=== PATIENT | male | born 1940 ===

== ENCOUNTER 2018-07-18 07:30 | Day surgery (SDC) | payer MEDICARE, BC ==
[~2018-07-18 07:30] MED LIST: Acetaminophen TAB* 325 MG PO PRN; Buffered Lidocaine 0.9% SYRIN* 5 ML/SYR SYRINGE INTRADERM ONE
[2018-07-18] MEDS ORDERED: Midazolam* 1 MG/ML 2 ML VIAL (2 MG) ONE (08:31)
[2018-07-18] MEDS ORDERED: fentaNYL* 50 MCG/ML 2 ML VIAL (100 MCG VIAL) ONE (08:31)
[2018-07-18 10:02] VITALS: BP 145/87
--- NOTE | 2018-07-18 12:06 | OP ---
OPERATIVE REPORT: DATE OF OPERATION: 07/18/18 DATE OF : 42 SURGEON: Jamie Bundy MD ANESTHESIA: Monitored anesthesia care. PRE-OP DIAGNOSIS: Cataract, left eye. POST-OP DIAGNOSIS: Cataract, left eye. OPERATIVE PROCEDURE: Extracapsular cataract extraction of the left eye with intraocular lens implant . IMPLANTS: SN60WF 20.5 diopter lens to the left eye. COMPLICATIONS: None. DESCRIPTION OF PROCEDURE: The patient was given phenylephrine 2.5 % and cyclopentolate 1% eye drops to the operative eye in the preoperative area. The patient was taken to the operating room where a ti me-out was taken to identify the correct patient, site, and side of surgery. The patient's left eye w as prepped and draped in the usual sterile fashion with 5% Betadine. A second time-out was taken to v erify the correct patient, side, and site of surgery, as well as the correct lens implant. A lid spec ulum was placed to the left eye. A 1-mm paracentesis blade was used to make a clear corneal incision. Preservative-free 1% lidocaine was injected into the anterior chamber. DisCoVisc was then injected i nto the anterior chamber. A 2.75 mm keratome blade was used to make a triplanar incision. A cystotome initiated a capsulorrhexis, which was completed with Utrata forceps in a continuous and curvilinear manner. Hydrodissection of the lens was performed with BSS on a cannula. The lens could be spun in a capsular bag. The phacoemulsification handpiece was used with a [id number]-[id number] technique to remov e the nucleus. The I/A handpiece then removed the residual cortical lens material. DisCoVisc was inje cted to inflate the capsular bag. The planned SN60WF 20.5 Diopter lens was injected into the capsular bag. The residual DisCoVisc was removed from the eye with the I/A handpiece. The corneal incisions w ere hydrated and no leaks occurred at physiologic pressure around 20 mmHg per palpation. The lid spec ulum was removed and drapes were removed. Maxitrol ointment was placed to the surface of the operativ e eye. An adhesive patch and shield was then placed on the operative eye. The patient was taken to e postoperative area in stable condition. [id number]/[facility] #: [id number]
[2018-07-18] MEDS ORDERED: Tropicamide 1% OPTH.SOL* BTL ONE (14:33)
[2018-07-18] MEDS ORDERED: Neomycin/Polymy/Dex OPHTH.OIN* 3.5 GM ONE (14:33)
[2018-07-18] MEDS ORDERED: Phenylephrine 2.5% OPTH.SOL* 2 ML BTL ONE (14:33)
[2018-07-18] MEDS ORDERED: Tetracaine 0.5% OPTH.SOL 4 ML* 1 DROP BTL ONE (14:33)
[2018-07-18] MEDS ORDERED: Ketorolac 0.5% OPHTH (NF) 0.5 % 5 ML BTL ONE (14:33)
[2018-07-18] MEDS ORDERED: Cyclopentolate 1% OPTH.SOL* 2 ML BTL ONE (14:33)
[2018-07-18] MEDS ORDERED: Povidone Iodine 5% OPTH* 30 ML BTL ONE (14:33)
[2018-07-18] MEDS ORDERED: Lidocaine 1%* 5 ML VIAL ONE (14:33)
[2018-07-18] MEDS ORDERED: acetaZOLAMIDE TAB* 250 MG ONE (14:33)
== END 2018-07-18 09:53 | disposition home or self-care (01) ==
LOC: OREAST 07:30
PROVIDERS: ATTEND Student in an Organized Health Care Education/Training Program
DX: H25.12 Age-related nuclear cataract, left eye (principal); H35.3131 Nonexudative age-related macular degeneration, bilateral, early dry stage; Z87.891 Personal history of nicotine dependence; Z85.028 Personal history of other malignant neoplasm of stomach; K21.9 Gastro-esophageal reflux disease without esophagitis; F41.8 Other specified anxiety disorders; C85.90 Non-Hodgkin lymphoma, unspecified, unspecified site
CPT/HCPCS: A9270-GY; J2250; J3010; V2632

== ENCOUNTER 2018-08-14 08:15 | Emergency (ER) | payer MEDICARE, BC ==
--- NOTE | 2018-08-14 08:28 | ED ---
GI/ HPI - HPI Summary HPI Summary: The patient is a 77 y/o M presenting to [facility] with a chief complaint of urinary retention and constipation for the last three days. He states that he has been able to urinate scant amounts with his last urination occurring this morning [employer].He has been taking Miralax for the constipation to some relief. He additionally c/o mild lower back pain and diffuse suprapubic abd pain, currently rated 4/10 in severity. He denies fevers, SOB, and rectal pain. He has hx of BPH and ataxia. Former smoker. He takes Flomax and Vitamin D. Noncontributory to formerly [facility], [facility]. He lives at home with his and children. - History of Current Complaint Chief Complaint: EDUrogenitalProblems Time Seen by Provider: 08/14/18 08:19 Stated Complaint: UNABLE TO URINATE Hx Obtained From: Patient Onset/Duration: Started Days Ago - three, Still Present Timing: Lasting Days Severity: Moderate Current Severity: Moderate Pain Intensity: 4 Location of Pain: Suprapubic Associated Signs and Symptoms: Positive: Back Pain - low back, Constipation, Abdominal Pain - diffuse suprapuic, Other: - NEGATIVE: SOB. Negative: Rectal Pain, Fever Aggravating Factor(s): Nothing Alleviating Factor(s): Nothing - Allergy/Home Medications Allergies/Adverse Reactions: Allergies Allergy/AdvReac Type Severity Reaction Status Date / Time celecoxib [From Celebrex] Allergy Unknown Verified 08/14/18 08:27 Reaction Details oxycodone Allergy Unknown Verified 08/14/18 08:27 Reaction Details PMH/Surg Hx/FS Hx/Imm Hx Endocrine/Hematology History: Denies: Hx Diabetes Cardiovascular History: Denies: Hx Hypertension, Hx Pacemaker/ICD, Other Cardiovascular Problems/ Disorders Respiratory History: Denies: Other Respiratory Problems/Disorders GI History: Reports: Hx Gastroesophageal Reflux Disease, Other GI Disorders - Stomach cancer -radiation History: Reports: Other Problems/Disorders - Benign Prostate Hypertrophy Denies: Hx Renal Disease Musculoskeletal History: Denies: Other Musculoskeletal History Sensory History: Reports: Hx Cataracts - Left eye, Hx Contacts or Glasses - Glasses Denies: Hx Hearing Aid Opthamlomology History: Reports: Hx Cataracts - Left eye, Hx Contacts or Glasses - Glasses Neurological History: Reports: Other Neuro Impairments/Disorders - Ataxia, Parkinson's Disease Psychiatric History: Reports: Hx Anxiety, Hx Depression Denies: Hx Panic Disorder - Cancer History Cancer Type, Location and Year: STOMACH CARCINOMA 2007 Hx Chemotherapy: Yes - Surgical History Surgery Procedure, Year, and Place: Left knee surgery. Left wrist surgery Hx Anesthesia Reactions: No Infectious Disease History: No Infectious Disease History: Denies: Traveled Outside the [place] in Last 30 Days - Family History Known Family History: Positive: Unknown - Patient is noncontributory. - Social History Lives: With Family Alcohol Use: None Substance Use Type: Reports: None Smoking Status (MU): Former Smoker Type: Cigars Amount Used/How Often: cigars Review of Systems Negative: Fever Negative: Shortness Of Breath Positive: Abdominal Pain - diffuse lower abd, Other - constipation Positive: frequency - decreased urination for last three days Positive: Other - low back pain All Other Systems Reviewed And Are Negative: Yes Physical Exam - Summary Physical Exam Summary: Appearance: Well appearing, no pain distress Skin: warm, dry, reflects adequate perfusion Head/face: normal Eyes: EOMI, BREANNE ENT: mucous membranes moist Neck: supple, non-tender Respiratory: CTA, breath sounds present Cardiovascular: heart is tachycardic, pulses symmetrical Abdomen: non-tender, soft Bedside US: bladder is full but not overly distended, very large prostate, suprapubic tenderness in nature Exam: circumcised male, prostate is firm and enlarged Bowel Sounds: present Musculoskeletal: normal, strength/ROM intact, no back pain at all Neuro: Dysarthria with speech, sensory motor intact, A&Ox3 Triage Information Reviewed: Yes Vital Signs On Initial Exam: Initial Vitals Temp Pulse Resp BP Pulse Ox 99.1 F 98 20 182/99 95 08/14/18 08:18 08/14/18 08:18 08/14/18 08:18 08/14/18 08:18 08/14/18 08:18 Vital Signs Reviewed: Yes Diagnostics - Vital Signs Vital Signs Temp Pulse Resp BP Pulse Ox 08/14/18 08:18 99.1 F 98 20 182/99 95 - Laboratory Result Diagrams: 08/14/18 08:46 08/14/18 08:46 Lab Statement: Any lab studies that have been ordered have been reviewed, and results considered in the medical decision making process. GIGU Course/Dx - Course Course Of Treatment: Patient with a history of BPH who presents with discomfort in the perineal and sacral area. States he has not been able to urinate in several days. He was able to go a small amount prior to arrival. He has no fever, shakes or chills. Prostate is firm but not boggy or with no significant tenderness on exam. The urine came out clear and he drained over 700 cc with placement of [place]. He is already on Flomax. He will follow-up with the urologist this week. A dose of Rocephin was given here after the prostate was instrumented during catheterization. - Diagnoses Differential Diagnoses - Male: Other - Acute constipation, prostatitis, UTI, BPH , urinary retention, prostate cancer Provider Diagnoses: BPH (benign prostatic hyperplasia), Acute urinary retention Discharge - Sign-Out/Discharge Documenting (check all that apply): Patient Departure - Patient will be discharged home. - Discharge Plan Condition: Improved Disposition: HOME Patient Education Materials: Urinary Retention in Men (ED) Referrals: Giovanni Brown MD [Primary Care Provider] - 3 Days Rylan Garnica MD [Medical Doctor] - Additional Instructions: Catheter likely will have to remain in place for this week. See your urologist as soon as possible. Continue Flomax. Return if worse, fevers, weakness, illness, new symptoms or other concerns. - Billing Disposition and Condition Condition: IMPROVED Disposition: Home - Attestation Statements Document Initiated by Isa: Yes Documenting Scribe: Allyson Pulliam Provider For Whom Isa is Documenting (Include Credential): Dr. Paul Marc MD Scribe Attestation: Allyson Stack scribed for Dr. Paul Marc MD on 08/14/18 at 1453. Scribe Documentation Reviewed: Yes Provider Attestation: The documentation as recorded by the Allyson cid accurately reflects the service I personally performed and the decisions made by me, Dr. Paul Marc MD
[2018-08-14] MEDS ORDERED: NS 0.9% 1000 ML* 1,000 ML IV ONE (08:31)
--- OUTSIDE RECORDS SUMMARY | 2018-08-14 08:39 | XMS REPORT | Continuity of Care Document ---
:1940 External Reference #:[id number] Author Name Jamie Bundy M.D. Address [address] [place] [address] Care Team Providers Name Role Phone Giovanni Brown M.D. Primary Care Physician Unavailable Payers Type Date Identification Numbers Payment Provider Subscriber Effective: Policy Number: [id number] Medicare - NGS Viktor Soto 2006 PayID: [id number] [address] [facility] [place] [address] Policy Number: [id number] [place] Plan [employer] Soto PayID: [id number] [address] [place] [address] Advance Directives Description No Information Available Problems Date Description Provider Status Onset: 04/12/2015 Mitral valve prolapse Lina Graham O.D. Active Onset: 04/12/2015 Spondylosis Lina Graham O.D. Active Onset: 04/12/2015 Disorder of prostate Lina Graham O.D. Active Onset: 04/12/2015 Lymphoma of body of stomach Lina Graham O.D. Active Onset: 04/12/2015 Neuropathy Lina Graham O.D. Active Onset: 04/12/2015 Glaucoma suspect Lina Graham O.D. 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 Active Onset: 04/12/2015 Dry eyes Lina Graham O.D. Active Onset: 04/12/2015 Sjogren's syndrome Lina Graham O.D. Active Onset: 04/12/2015 Nuclear senile cataract Lina Graham O.D. Active Onset: 04/12/2015 Retinal hemorrhage Lina Graham O.D. Active Onset: 04/12/2015 Astigmatism Lina Graham O.D. Active Onset: 05/24/2015 Borderline glaucoma Lina Graham O.D. Active Onset: 10/23/2016 Diplopia Lina Graham O.D. Active Onset: 01/29/2017 Regular astigmatism Lina Graham O.D. Active Onset: 01/29/2017 Presbyopia Lina Graham O.D. 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 Family History Date Family Member(s) Problem(s) Comments General Not Known - Adopted Social History Type Date Description Comments Sex Unknown Marital Status Legal Status: Occupation [employer] ETOH Use Occasionally consumes alcohol Recreational Drug Use Denies Drug Use Tobacco Use Start: Unknown End: Patient is a former smoker Unknown Smoking Status Reviewed: 08/02/18 Patient is a former smoker Allergies, Adverse Reactions, Alerts Date Description Reaction Status Severity Comments 04/12/2015 Celebrex Active 04/12/2015 Oxycontin Active Medications Medication Date Status Form Strength Qnty SIG Indications Ordering Provider Refresh Optive 04/11/ Active Solution 0.5-0.9% 1 drop Lina LozaRio 2014 both eyes [place], four times O.D. a day Genteal Severe 04/11/ Active Gel 0.3% 1 both Lina Loza. 2014 eyes twice [place], a day O.D. Flomax / Active Capsules 0.4mg Unknown 0000 Vitamin D / Active Tablets 1000Unit every day Unknown 0000 Clonazepam / Active Tablets 0.5mg as needed Stephanie, 0000 Giovanni M.DRio Vigamox 07/06/ Hx Solution 0.5% 3ml one drop Jamie 2018 - left eye Niharika, 08/01/ three M.D. 2018 times a day, start the day before surgery Ketorolac 07/06/ Hx Solution 0.5% 10ml use one Jamie Tromethamine 2018 - drop in Niharika, 08/01/ the left M.D. 2018 eye three times a day, start the day before surgery Prednisolone 07/06/ Hx Suspension 1% 15ml 1 drops Jamie Acetate 2018 - left eye Niharika, 08/01/ three M.D. 2018 times a day. taper as directed Celexa / Hx Tablets 10mg Unknown 0000 - 2017 Clonazepam / Hx Tablets 0.25mg Unknown 0000 - Dispers 2014 Immunizations Description No Information Available Vital Signs Description No Information Available Results Description No Information Available Procedures Date Code Description Status 07/18/2018 37836 Extracapsular Cataract Extraction W/Intraocular Lens Completed 07/06/2018 65061 Ophthalmic Biometry Completed 06/07/2018 56445 Est Patient Comprehensive Exam Completed 10/23/2016 17238 Visual Field Exam Extended Completed 10/23/2016 96930 Est Patient Intermediate Exam Completed 05/24/2015 23466 Scanning Computerized Ophthalmic Diagnostic Imag Posterior Completed Seg On 04/12/2015 71085 Determination Of Refractive State Completed 04/12/2015 24904 Est Patient Comprehensive Exam Completed 01/22/2014 56297 Determination Of Refractive State Completed 01/22/2014 19215 Est Patient Comprehensive Exam Completed 01/17/2013 77563 Determination Of Refractive State Completed 01/17/2013 23212 Est Patient Comprehensive Exam Completed 10/12/2011 69498 Est Patient Comprehensive Exam Completed 08/27/2010 39190 Determination Of Refractive State Completed 08/27/2010 48875 New Patient Comprehensive Exam Completed 02/17/2007 19948 Recheck Completed 07/22/2005 46490 Cancelled Appointment Completed 07/04/2004 30014 Cancelled Appointment Completed 06/23/2004 62597 Scanning Laser W/Interp And Report Completed 06/23/2004 69403 Scanning Laser W/Interp And Report Completed 06/23/2004 45459 Visual Field Exam Intermediate Completed 06/23/2004 87456 Pachymetry Completed 05/02/2004 84294 Fundus Photography With Interpretation And Report Completed 05/02/2004 08509 Determination Of Refractive State Completed 05/02/2004 19763 Est Patient Comprehensive Exam Completed Encounters Type Date Location Provider Dx Diagnosis Office Visit 07/06/2018 [facility], Jamie Bundy, H25.12 Age- related 2:15p , jessica Tadeo nuclear cataract, left eye 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 If you are a smoker, we strongly recommend that you quit.If you are not a smoker, we strongly recommend that you do not start. Your lens implant looks stable in your left eye at this time. You should be done, or almost done with your drops at this time according to your surgicalcalendar. I have given you a prescription for glasses. If you have any questions, please feel freeto call our office at .H25.11 Age-related nuclear cataract, right eyeComments:You have been diagnosed with a cataract in the right eye. If you are happy with your vision as it is, we will see you at your next scheduled appointment. If you feel like your vision is getting worse before your scheduled appointment, please call Norah Rich, at [phone].Follow up:1 Year Follow Up DFE You can expect to have your eyes dilated at your next visit. If Dr. Bundy orders any additional testing, it may require extra time. We recommend that you bring sunglasses, as dilation drops often make you light sensitive until they wear off. We always recommend you bring someone to drive you home if you are uncomfortable driving with your eyes dilated. If you have any questions before your next visit, feel free to call our office at .
--- OUTSIDE RECORDS SUMMARY | 2018-08-14 08:39 | XMS REPORT | Continuity of Care Document ---
:1940 External Reference #:[id number] Author Name Jamie Bundy M.D. Address [address] [place] [address] Care Team Providers Name Role Phone Giovanni Brown M.D. Primary Care Physician Unavailable Payers Type Date Identification Numbers Payment Provider Subscriber Effective: Policy Number: [id number] Medicare - NGS Viktor Soto 2006 PayID: [id number] 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 times a day, start the day before surgery Ketorolac 07/06/ Active Solution 0.5% 10ml use one Jamie Tromethamine 2018 drop in [place], the left M.D. eye three times a day, start the day before surgery Prednisolone 07/06/ Active Suspension 1% 15ml 1 drops Jamie Acetate 2018 left eye [place]i, three M.D. times a day. taper as directed Refresh Optive 04/11/ Active Solution 0.5-0.9% 1 drop Lina Elkins 2014 both eyes [place], four times O.D. a day Genteal Severe 04/11/ Active Gel 0.3% 1 both Lina Elkins 2014 eyes twice [place], a day O.D. Flomax / Active Capsules 0.4mg Unknown 0000 Vitamin D / Active Tablets 1000Unit every day Unknown 0000 Celexa / Hx Tablets 10mg Unknown 0000 - 2017 Clonazepam / Hx Tablets 0.25mg Unknown 0000 - Dispers 2014 Immunizations Description No Information Available Vital Signs Description No Information Available Results Description No Information Available Procedures Date Code Description Status 07/06/2018 53706 Ophthalmic Biometry Completed 06/07/2018 30886 Est Patient Comprehensive Exam Completed 10/23/2016 35299 Visual Field Exam Extended Completed 10/23/2016 30120 Est Patient Intermediate Exam Completed 05/24/2015 38421 Scanning Computerized Ophthalmic Diagnostic Imag Posterior Completed Seg On 04/12/2015 38392 Determination Of Refractive State Completed 04/12/2015 85983 Est Patient Comprehensive Exam Completed 01/22/2014 15025 Determination Of Refractive State Completed 01/22/2014 58677 Est Patient Comprehensive Exam Completed 01/17/2013 21542 Determination Of Refractive State Completed 01/17/2013 38490 Est Patient Comprehensive Exam Completed 10/12/2011 31412 Est Patient Comprehensive Exam Completed 08/27/2010 94684 New Patient Comprehensive Exam Completed 08/27/2010 18595 Determination Of Refractive State Completed 02/17/2007 04471 Recheck Completed 07/22/2005 08336 Cancelled Appointment Completed 07/04/2004 13256 Cancelled Appointment Completed 06/23/2004 11231 Scanning Laser W/Interp And Report Completed 06/23/2004 96974 Scanning Laser W/Interp And Report Completed 06/23/2004 62997 Visual Field Exam Intermediate Completed 06/23/2004 14026 Pachymetry Completed 05/02/2004 01831 Fundus Photography With Interpretation And Report Completed 05/02/2004 47355 Determination Of Refractive State Completed 05/02/2004 02418 Est Patient Comprehensive Exam Completed Encounters Type Date Location Provider Dx Diagnosis Office Visit 07/06/2018 Jamie Rodriguez, H25.12 Age- related 2:15p , jessica Tadeo nuclear cataract, left eye H35.2341 Nexdtve age-related mclr degn, bilateral, early dry stage H25.11 Age-related nuclear cataract, right eye Office Visit 05/24/2015 1:30p [facility] Graham, 362.81 Retinal Hemorrhage MD Hailey, pc O.D. 365.00 Preglaucoma Unspec Office Visit 07/23/2004 1:45p [facility] Hart, Ba Capps, 710.2 Sicca Syndrome , jessica Tadeo 365.00 Preglaucoma Unspec Plan of Treatment Future Appointment(s):08/02/2018 9:45 am - Jamie Bundy M.D. at [facility] MD, 07/19/2018 - Jamie Bundy M.D.Z96.1 Presence of intraocular lensComments:Smoking can increase the risk of developing or worsening any eye related disease, as well as affect your overall health. If you are a smoker, we strongly recommend that you quit.If you are not a smoker, we strongly recommend that you do not start. The artifical lens implant in your left eye appears to be stable. Since this is the first day after surgery, your left eye is still dilated and the vision will still be slightly blurry. The dilation will go down over the next day or two. Continue taking your eye drops as directed on the surgical calendar. If you have any questions, please call our office.
[2018-08-14 08:57] LABS: ABS Basophils 0 10^3/ul (0-0.2); ABS Eosinophils 0.2 10^3/ul (0-0.6); ABS Lymphocytes 1.6 10^3/ul (1.0-4.8); ABS Monocytes 0.4 10^3/ul (0-0.8); ABS Neutrophils 2.8 10^3/ul (1.5-7.7); ABS Nucleated RBC 0 10^3/ul; Eosinophil % 4.3 % (0-6); Hematocrit 45 % (42-52); Hemoglobin 15.3 g/dl (14.0-18.0); Lymphocyte % 31.6 % (25-47); Mean Corpuscular HGB Conc 34 g/dl (31-36); Mean Corpuscular Hemoglobin 31 pg (27-31); Mean Corpuscular Volume 90 fL (80-94); Mean Platelet Volume 7.1 um3 (7.4-10.4); Nucleated Red Blood Cells % 0.1; Platelet Count 181 10^3/ul (150-450); Red Cell Distribution Width 14 % (10.5-15); White Blood Count 5.1 10^3/ul (3.5-10.8)
[2018-08-14 09:02] LABS: INR 1.08 (0.77-1.02)
[2018-08-14 09:32] LABS: Urine Appearance Clear; Urine Blood 1+ (Negative); Urine Color Yellow; Urine Ketones Negative (Negative); Urine Protein Negative (Negative); Urine Red Blood Cell 2+(6-10/hpf) (Absent); Urine Specific Gravity 1.012 (1.010-1.030); Urine Urobilinogen Negative (Negative); Urine White Blood Cell Trace(0-5/hpf) (Absent)
[2018-08-14] MEDS ORDERED: Metoprolol Tartrate IV* 1 MG/ML 5 ML VIAL IV ONE (09:52)
[2018-08-14] MEDS ORDERED: cefTRIAXone(*) 1 GM in NS 0.9% 50 ML* 50 ML IVPB ONE (10:25)
[2018-08-14 10:56] VITALS: BP 156/87
--- NOTE | 2018-08-15 11:48 | ED ---
Progress - Progress Note Progress Note: Patient blood culture return positive for one bottle of gram-positive cocci in clusters. MRSA negative. I called the patient back and spoke with him. He is not having any fevers but has had a mild amount of bleeding in the catheter. He states it just pink at this point. He is supposed to have a follow-up appointment either later today or tomorrow. He has talked to the primary care office already. His discomfort is mild. I will cover him for possible prostatitis. Doxycycline called in to his pharmacy. He is aware and will pick it up today. He will follow up closely with his doctors. Course/Dx - Course Course Of Treatment: Patient with a history of BPH who presents with discomfort in the perineal and sacral area. States he has not been able to urinate in several days. He was able to go a small amount prior to arrival. He has no fever, shakes or chills. Prostate is firm but not boggy or with no significant tenderness on exam. The urine came out clear and he drained over 700 cc with placement of [place]. He is already on Flomax. He will follow-up with the urologist this week. A dose of Rocephin was given here after the prostate was instrumented during catheterization. - Diagnoses Provider Diagnoses: BPH (benign prostatic hyperplasia), Acute urinary retention Discharge - Sign-Out/Discharge Documenting (check all that apply): Patient Departure - Discharge Plan Condition: Improved Disposition: HOME Prescriptions: Doxycycline Monohydrate 100 mg PO BID #14 capsule Patient Education Materials: Urinary Retention in Men (ED) Referrals: Giovanni Brown MD [Primary Care Provider] - 3 Days Rylan Garnica MD [Medical Doctor] - Additional Instructions: Catheter likely will have to remain in place for this week. See your urologist as soon as possible. Continue Flomax. Return if worse, fevers, weakness, illness, new symptoms or other concerns. - Billing Disposition and Condition Condition: IMPROVED Disposition: Home - Attestation Statements Document Initiated by Isa: No
== END 2018-08-14 11:20 | disposition home or self-care (01) ==
LOC: ED 08:15
DX: N40.1 Benign prostatic hyperplasia with lower urinary tract symptoms (principal); R33.8 Other retention of urine; R10.9 Unspecified abdominal pain; Z88.8 Allergy status to other drugs, medicaments and biological substances; Z87.891 Personal history of nicotine dependence
CPT/HCPCS: 36415; 80053; 81003; 81015; 83605; 83690; 85025; 85610; 86140; 87040; 87077; 87086; 87150; 87205; 96365; 99283; J0696

== ENCOUNTER → 2018-09-02 12:04 | Emergency (ER) | payer MEDICARE, BC ==
[~2018-09-02 12:04] MED LIST changes: -Acetaminophen TAB* 325 MG PO PRN; -Buffered Lidocaine 0.9% SYRIN* 5 ML/SYR SYRINGE INTRADERM ONE; +Levofloxacin TAB* 500 MG PO ONE; +NS 0.9% 1000 ML* 1,000 ML IV ONE
--- NOTE | 2018-09-02 13:26 | RAD ---
HISTORY: dizzy COMPARISONS: September 26, 2015 TECHNIQUE: Multiple contiguous axial CT scans were obtained of the head without intravenous contrast. FINDINGS: HEMORRHAGE/INFARCT: There is no hemorrhage or acute infarct. MASSES/SHIFT: There is no mass or shift. EXTRA-AXIAL SPACES: There are no extra-axial fluid collections. SULCI AND VENTRICLES: The sulci and ventricles are normal in size and position for the patient's stated age. CEREBRUM: There is hypoattenuation of the periventricular and subcortical white matter. BRAINSTEM: There are no focal parenchymal abnormalities. CEREBELLUM: There are no focal parenchymal abnormalities. VESSELS: The vessels are grossly normal. PARANASAL SINUSES: The paranasal sinuses are clear. ORBITS: The orbits are unremarkable. BONES AND SOFT TISSUE: No bone or soft tissue abnormalities are noted. OTHER: None IMPRESSION: NO ACUTE INTRACRANIAL PATHOLOGY.
--- NOTE | 2018-09-02 13:38 | RAD ---
INDICATION: Dizziness. COMPARISON: Comparison is made with a prior study from May 14, 2010. TECHNIQUE: Dual-energy PA views of the chest were obtained. FINDINGS: The heart is within normal limits in size. Mediastinal and hilar contours appear within normal limits. The lungs are clear. No pleural effusion is present. IMPRESSION: NO EVIDENCE FOR ACTIVE CARDIOPULMONARY DISEASE.
[2018-09-02 14:04] LABS: ABS Basophils 0 10^3/ul (0-0.2); ABS Eosinophils 0.1 10^3/ul (0-0.6); ABS Lymphocytes 1.2 10^3/ul (1.0-4.8); ABS Monocytes 0.4 10^3/ul (0-0.8); ABS Neutrophils 4.2 10^3/ul (1.5-7.7); ABS Nucleated RBC 0 10^3/ul; Hematocrit 42 % (42-52); Hemoglobin 14.2 g/dl (14.0-18.0); Lymphocyte % 19.9 % (25-47); Mean Corpuscular HGB Conc 34 g/dl (31-36); Mean Corpuscular Hemoglobin 31 pg (27-31); Mean Corpuscular Volume 91 fL (80-94); Mean Platelet Volume 7.2 um3 (7.4-10.4); Nucleated Red Blood Cells % 0.1; Platelet Count 212 10^3/ul (150-450); Red Blood Count 4.62 10^6/ul (4.00-5.40); Red Cell Distribution Width 14 % (10.5-15); White Blood Count 5.9 10^3/ul (3.5-10.8)
[2018-09-02 14:15] LABS: INR 1.16 (0.77-1.02)
--- NOTE | 2018-09-02 14:15 | ED ---
Dizziness - HPI Summary HPI Summary: Patient is a 77 y/o M w/ c/o dizziness, tremors, gait disturbance and lack of coordination. He has PMHx of Parkinson's but reports that Sx have worsened over the past week. Patient additionally notes increased weakness and is not able to do ADLs. Chest pain, SOB, abdominal pain are denied. He denies alcohol/drug usage, smoking. On triage, pain is denied. In the room, he notes stress aggravates tremors, nothing is reported to alleviate. Home medications and allergies are reviewed. Patient is wheelchair-bound. - History Of Current Complaint Chief Complaint: EDDizziness Stated Complaint: DEPRESSION Time Seen by Provider: 09/02/18 12:24 Hx Obtained From: Patient Onset/Duration: Still Present Timing: Weeks - worse since a week ago Severity Currently: None Character: Dizzy Aggravating Factor(s): Other - stress aggravates UE tremors Alleviating Factor(s): Nothing Associated Signs And Symptoms: Positive: Unsteady Gait, Other: - lack of coordination, tremors, increased weakness - Allergies/Home Medications Allergies/Adverse Reactions: Allergies Allergy/AdvReac Type Severity Reaction Status Date / Time celecoxib [From Celebrex] Allergy Unknown Verified 08/14/18 08:27 Reaction Details oxycodone Allergy Unknown Verified 08/14/18 08:27 Reaction Details Home Medications: Home Medications Escitalopram (NF) [Lexapro 10 mg (NF)] 10 mg PO DAILY 09/02/18 [History Confirmed 09/02/18] Tamsulosin CAP* [Flomax CAP*] 0.4 mg PO DAILY 09/02/18 [History Confirmed ] PMH/Surg Hx/FS Hx/Imm Hx Endocrine/Hematology History: Denies: Hx Diabetes Cardiovascular History: Denies: Hx Hypertension, Hx Pacemaker/ICD, Other Cardiovascular Problems/ Disorders Respiratory History: Denies: Other Respiratory Problems/Disorders GI History: Reports: Hx Gastroesophageal Reflux Disease, Other GI Disorders - Stomach cancer -radiation History: Reports: Other Problems/Disorders - Benign Prostate Hypertrophy Denies: Hx Renal Disease Musculoskeletal History: Denies: Other Musculoskeletal History Sensory History: Reports: Hx Cataracts - Left eye, Hx Contacts or Glasses - Glasses Denies: Hx Hearing Aid Opthamlomology History: Reports: Hx Cataracts - Left eye, Hx Contacts or Glasses - Glasses Neurological History: Reports: Other Neuro Impairments/Disorders - Ataxia, Parkinson's Disease Psychiatric History: Reports: Hx Anxiety, Hx Depression Denies: Hx Panic Disorder - Cancer History Cancer Type, Location and Year: STOMACH CARCINOMA 2006 Hx Chemotherapy: Yes - Surgical History Surgery Procedure, Year, and Place: Left knee surgery. Left wrist surgery Hx Anesthesia Reactions: No Infectious Disease History: No Infectious Disease History: Denies: Traveled Outside the [place] in Last 30 Days - Family History Known Family History: Negative: Blood Disorder - Social History Alcohol Use: None Substance Use Type: Reports: None Smoking Status (MU): Former Smoker Type: Cigars Amount Used/How Often: cigars Review of Systems Positive: Other - increased weakness. Negative: Fever - on vitals, temp is 99 F Negative: Chest Pain Negative: Shortness Of Breath Negative: Abdominal Pain Neurological: Other - dizziness, gait disturbance, lack of coordination All Other Systems Reviewed And Are Negative: Yes Physical Exam - Summary Physical Exam Summary: Appearance: Well appearing, no pain distress; patient has a nelson catheter in place Skin: warm, dry, reflects adequate perfusion Head/face: normal Eyes: EOMI, BREANNE ENT: dry mucous membranes Neck: supple, non-tender Respiratory: CTA, breath sounds present Cardiovascular: RRR, pulses symmetrical Abdomen: non-tender, soft Bowel: present Musculoskeletal - pulse b/l present. Neuro: A&Ox3; GCS 15 Triage Information Reviewed: Yes Vital Signs On Initial Exam: Initial Vitals Temp Pulse Resp BP Pulse Ox 99.0 F 90 28 163/98 97 09/02/18 12:34 09/02/18 12:34 09/02/18 12:34 09/02/18 12:34 09/02/18 12:34 Vital Signs Reviewed: Yes Diagnostics - Vital Signs Vital Signs Temp Pulse Resp BP Pulse Ox 09/02/18 12:34 99.0 F 90 28 163/98 97 - Laboratory Lab Results: Lab Results 09/02/18 Range/Units 13:41 WBC 5.9 (3.5-10.8) 10^3/ul RBC 4.62 (4.00-5.40) 10^6/ul Hgb 14.2 (14.0-18.0) g/dl Hct 42 (42-52) % MCV 91 (80-94) fL MCH 31 (27-31) pg MCHC 34 (31-36) g/dl RDW 14 (10.5-15) % Plt Count 212 (150-450) 10^3/ul MPV 7.2 L (7.4-10.4) um3 Neut % (Auto) 70.9 (38-83) % Lymph % (Auto) 19.9 L (25-47) % Wilbarger % (Auto) 6.7 (0-7) % Eos % (Auto) 2.0 (0-6) % Baso % (Auto) 0.5 (0-2) % Absolute Neuts (auto) 4.2 (1.5-7.7) 10^3/ul Absolute Lymphs (auto) 1.2 (1.0-4.8) 10^3/ul Absolute Monos (auto) 0.4 (0-0.8) 10^3/ul Absolute Eos (auto) 0.1 (0-0.6) 10^3/ul Absolute Basos (auto) 0 (0-0.2) 10^3/ul Absolute Nucleated RBC 0 10^3/ul Nucleated RBC % 0.1 Result Diagrams: 09/02/18 13:41 09/02/18 13:41 Lab Statement: Any lab studies that have been ordered have been reviewed, and results considered in the medical decision making process. - Radiology CXR Radiology Interpretation Completed By: Radiologist Summary of Radiographic Findings: CXR showed no evidence for active cardiopulmonary disease. This report was reviewed by ED physician. - CT Brain CT CT Interpretation Completed By: Radiologist Summary of CT Findings: Brain CT showed no acute intracranial pathology. This report was reviewed by ED physician. - EKG 1311 Cardiac Rate: NL - rate of 85 BPM EKG Rhythm: Sinus Rhythm Summary of EKG Findings: No acute changes. Re-Evaluation - Re-Evaluation First Eval Re-Evaluation Time: 15:30 Comment: Discussed results of labs and tests, patient will be discharged to home , patient is agreeable with this. Dizzy Course/Dx - Course Course Of Treatment: Patient is a 77 y/o M w/ c/o dizziness, tremors, gait disturbance and lack of coordination. He has PMHx of Parkinson's but reports that Sx have worsened over the past week. Patient additionally notes increased weakness and is not able to do ADLs. Chest pain, SOB, abdominal pain are denied. On physical exam, patient is noted to have dry mucous membranes and a nelson catheter in place. During ED course, patient received fluids and Levaquin 500 mg. CXR showed no evidence for active cardiopulmonary disease. Brain CT showed no acute intracranial pathology. EKG showed sinus rhythm with rate of 85 BPM. Bloodwork/UA obtained. Discussed results of labs and tests with patient , patient will be discharged to home, patient is agreeable with this. Dx of UTI. - Diagnoses Provider Diagnoses: UTI (urinary tract infection) Discharge - Sign-Out/Discharge Documenting (check all that apply): Patient Departure - discharge - Discharge Plan Condition: Stable Disposition: HOME Prescriptions: Levofloxacin TAB* [Levaquin TAB*] 500 mg PO DAILY #7 tab Patient Education Materials: Urinary Tract Infection in Men (ED) Referrals: Giovanni Brown MD [Primary Care Provider] - 3 Days Additional Instructions: RETURN TO ED FOR ANY NEW OR WORSENING SYMPTOMS. FOLLOW UP WITH PRIMARY CARE PHYSICIAN IN THREE DAYS. - Billing Disposition and Condition Condition: STABLE Disposition: Home - Attestation Statements Document Initiated by Elijahibe: Yes Documenting Scribe: Lorne Whitehead Provider For Whom Isa is Documenting (Include Credential): Curtis Starr MD Scribe Attestation: Lorne Stack scribed for Curtis Starr MD on 09/02/18 at 1624. Scribe Documentation Reviewed: Yes Provider Attestation: The documentation as recorded by the Lorne cid accurately reflects the service I personally performed and the decisions made by , Curtis Starr MD
[2018-09-02 14:39] LABS: EGFR Non-African American 84.2 (>60)
[2018-09-02 15:11] LABS: Urine Appearance Cloudy; Urine Blood Negative (Negative); Urine Color Yellow; Urine Ketones Negative (Negative); Urine Protein Negative (Negative); Urine Red Blood Cell 2+(6-10/hpf) (Absent); Urine Specific Gravity 1.016 (1.010-1.030); Urine Urobilinogen Negative (Negative); Urine White Blood Cell 3+(>20/hpf) (Absent)
[2018-09-02 15:44] VITALS: BP 154/86
--- NOTE | 2018-09-04 06:41 | ED ---
Progress - Progress Note Progress Note: preliminary urine culture reveals greater than 100,000 Staphylococcus epidermidis. Patient was diagnosed with UTI and placed on Levaquin. Final results pending. Re-Evaluation - Re-Evaluation First Eval Re-Evaluation Time: 15:30 Comment: Discussed results of labs and tests, patient will be discharged to home , patient is agreeable with this. Course/Dx - Course Course Of Treatment: Patient is a 77 y/o M w/ c/o dizziness, tremors, gait disturbance and lack of coordination. He has PMHx of Parkinson's but reports that Sx have worsened over the past week. Patient additionally notes increased weakness and is not able to do ADLs. Chest pain, SOB, abdominal pain are denied. On physical exam, patient is noted to have dry mucous membranes and a nelson catheter in place. During ED course, patient received fluids and Levaquin 500 mg. CXR showed no evidence for active cardiopulmonary disease. Brain CT showed no acute intracranial pathology. EKG showed sinus rhythm with rate of 85 BPM. Bloodwork/UA obtained. Discussed results of labs and tests with patient , patient will be discharged to home, patient is agreeable with this. Dx of UTI. - Diagnoses Provider Diagnoses: UTI (urinary tract infection) Discharge - Sign-Out/Discharge Documenting (check all that apply): Post-Discharge Follow Up - Discharge Plan Condition: Stable Disposition: HOME Prescriptions: Levofloxacin TAB* [Levaquin TAB*] 500 mg PO DAILY #7 tab Patient Education Materials: Urinary Tract Infection in Men (ED) Referrals: Giovanni Brown MD [Primary Care Provider] - 3 Days Additional Instructions: RETURN TO ED FOR ANY NEW OR WORSENING SYMPTOMS. FOLLOW UP WITH PRIMARY CARE PHYSICIAN IN THREE DAYS. - Billing Disposition and Condition Condition: STABLE Disposition: Home
== END | disposition home or self-care (01) ==
LOC: ED 12:04
DX: N39.0 Urinary tract infection, site not specified (principal); B95.8 Unspecified staphylococcus as the cause of diseases classified elsewhere; G20 Parkinson's disease; Z99.3 Dependence on wheelchair; Z87.891 Personal history of nicotine dependence
CPT/HCPCS: 36415; 70450; 71045; 80053; 80307; 80320; 81003; 81015; 83605; 84484; 85025; 85610; 85730; 87077; 87086; 87186; 93005; 99283; G0480

== ENCOUNTER 2019-03-29 13:33 | Inpatient (IN) | payer MEDICARE, BC ==
--- NOTE | 2019-03-29 14:20 | ED ---
Dizziness - HPI Summary HPI Summary: The patient is a 78 y/o M presenting to [facility] with a chief complaint of sudden onset dizziness associated with uncoordination and unsteady gait starting this morning. He additionally c/o rapid HR. He denies any myalgia. 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 He sees a neurologist regularly. - History Of Current Complaint Chief Complaint: EDDizziness Stated Complaint: DIZZINESS PER EMS Time Seen by Provider: 03/29/19 14:06 Hx Obtained From: Patient Onset/Duration: Still Present, Suddenly Timing: Hours - thi morning Severity Initially: Moderate Severity Currently: Moderate Character: Dizzy Aggravating Factor(s): Nothing Alleviating Factor(s): Nothing Associated Signs And Symptoms: Positive: Unsteady Gait, Other: - uncoordinated, rapid HR - Allergies/Home Medications Allergies/Adverse Reactions: Allergies Allergy/AdvReac Type Severity Reaction Status Date / Time oxycodone Allergy Severe Slurred Verified 03/29/19 13:56 Speech celecoxib [From Celebrex] Allergy Mild Rash Verified 03/29/19 13:56 Home Medications: Home Medications Diltiazem TAB* [Cardizem 60 MG Tab*] 120 mg PO DAILY 03/29/19 [History Confirmed 03/29/19] PMH/Surg Hx/FS Hx/Imm Hx Endocrine/Hematology History: Denies: Hx Bone Marrow Disease, Hx Diabetes, Hx Sickle Cell Disease, Hx Anemia Cardiovascular History: Denies: Hx Hypercholesterolemia, Hx Hypertension, Hx Pacemaker/ICD, Other Cardiovascular Problems/Disorders Respiratory History: Reports: Hx Sleep Apnea - No CPAP Denies: Other Respiratory Problems/Disorders GI History: Reports: Hx Gastroesophageal Reflux Disease, Other GI Disorders - Stomach cancer -radiation History: Reports: Hx Kidney Infection, Other Problems/Disorders - Benign Prostate Hypertrophy Denies: Hx Renal Disease Musculoskeletal History: Denies: Other Musculoskeletal History Sensory History: Reports: Hx Cataracts - Left eye, Hx Contacts or Glasses - Glasses Denies: Hx Glaucoma, Hx Hearing Aid Opthamlomology History: Reports: Hx Cataracts - Left eye, Hx Contacts or Glasses - Glasses Denies: Hx Glaucoma Neurological History: Reports: Hx Nerve Disease, Other Neuro Impairments/ Disorders - Ataxia, Parkinson's Disease Psychiatric History: Reports: Hx Anxiety, Hx Depression Denies: Hx Panic Disorder - Cancer History Cancer Type, Location and Year: STOMACH CARCINOMA 2006 Hx Chemotherapy: Yes - Surgical History Surgery Procedure, Year, and Place: Left knee surgery. Left wrist surgery Hx Anesthesia Reactions: No Infectious Disease History: No Infectious Disease History: Denies: Traveled Outside the [place] in Last 30 Days - Family History Known Family History: Negative: Diabetes, Blood Disorder - Social History Alcohol Use: None Hx Substance Use: No Substance Use Type: Reports: None Hx Tobacco Use: Yes Smoking Status (MU): Former Smoker Type: Cigars Amount Used/How Often: cigars Length of Time of Smoking/Using Tobacco: 30 YRS Have You Smoked in the Last Year: No Review of Systems Positive: Other - increased HR Negative: Myalgia Neurological: Other - dizziness, uncoordination, unsteady gait All Other Systems Reviewed And Are Negative: Yes Physical Exam - Summary Physical Exam Summary: VITAL SIGNS: Reviewed. GENERAL: Patient is a well-developed and nourished male who is lying comfortable in the stretcher. Patient is not in any acute respiratory distress. HEAD AND FACE: No signs of trauma. No ecchymosis, hematomas or skull depressions. No sinus tenderness. EYES: PERRLA, EOMI x 2, No injected conjunctiva, no nystagmus. EARS: Hearing grossly intact. Ear canals and tympanic membranes are within normal limits. MOUTH: Oropharynx within normal limits. NECK: Supple, trachea is midline, no adenopathy, no JVD, no carotid bruit, no c- spine tenderness, neck with full ROM. CHEST: Symmetric, no tenderness at palpation LUNGS: Clear to auscultation bilaterally. No wheezing or crackles. CVS: Regular rate and rhythm, S1 and S2 present, no murmurs or gallops appreciated. ABDOMEN: Soft, non-tender. No signs of distention. No rebound no guarding, and no masses palpated. Bowel sounds are normal. EXTREMITIES: FROM in all major joints, no edema, no cyanosis or clubbing. NEURO: Alert and oriented x 3. No acute neurological deficits. Speech is normal and follows commands. SKIN: Dry and warm Triage Information Reviewed: Yes Vital Signs On Initial Exam: Initial Vitals Temp Pulse Resp BP Pulse Ox 97.6 F 100 16 146/90 96 03/29/19 13:50 03/29/19 13:50 03/29/19 13:50 03/29/19 13:50 03/29/19 13:50 Vital Signs Reviewed: Yes - Esmer Coma Scale Best Eye Response: 4 - Spontaneous Best Motor Response: 6 - Obeys Commands Best Verbal Response: 5 - Oriented Coma Scale Total: 15 Procedures - Laceration/Wound Repair 1 Location: head - right frontal above eyebrow Description: Irregular - t-shape Anesthesia: 1.0%, Lido Length, Depth and Shape: 4 cm Suture Type: Nylon - 5-0 Number of Sutures: 17 Diagnostics - Vital Signs Vital Signs Temp Pulse Resp BP Pulse Ox 03/29/19 13:50 97.6 F 100 16 146/90 96 - Laboratory Result Diagrams: 03/29/19 14:36 03/29/19 14:36 Lab Statement: Any lab studies that have been ordered have been reviewed, and results considered in the medical decision making process. - Radiology CXR Radiology Interpretation Completed By: Radiologist Summary of Radiographic Findings: No active cardiopulmonary disease is noted. ED physician has reviewed this report. - CT Brain CT CT Interpretation Completed By: Radiologist Summary of CT Findings: No evidence for acute intracranial abnormality. ED physician has reviewed this report. Brain CT (2) CT Interpretation Completed By: Radiologist Summary of CT Findings: 1. No acute intracranial findings. Age-related atrophy and chronic white matter ischemic change. 2. Small right frontal subcutaneous hematoma. ED physician has reviewed this report. Maxillofacial CT CT Interpretation Completed By: Radiologist Summary of CT Findings: 1. Possible acute right nasal bone fracture. Correlate with clinical exam. No other evidence of facial fracture. 2. Small right frontal subcutaneous hematoma and laceration. 3. Possible acute fracture of right nasal bone. ED physician has reviewed this report. - EKG 1408 Cardiac Rate: NL - 93 BPM EKG Rhythm: Sinus Rhythm EKG Comparison: No Significant Change - Similar to EKG taken on 09/02/2018 Summary of EKG Findings: Nml axis, no ST elevations Re-Evaluation - Re-Evaluation First Eval Re-Evaluation Time: 17:00 Change: Worse Comment: I spoke with the patient concerning discharge home. He does not feel like he is ready to be discharged yet. Dizzy Course/Dx - Course Assessment/Plan: The patient is a 78 y/o M presenting to [facility] with a chief complaint of sudden onset dizziness associated with incoordination and unsteady gait starting this morning. He additionally c/o rapid HR. He denies any myalgia. 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 He sees a neurologist regularly. Blood work without any significant abnormality except for glucose of 107, troponin 0.01. Urinalysis is negative for UTI. Chest x-ray impression: No active Pulmonary disease. Brain CT impression: No evidence for acute intracranial abnormality. The ED course the patient was given meclizine for vertigo. At this point, since test results are found within normal limits, and his symptoms have improved, the patient will be discharged home with follow-up with primary care physician. It seems that the patient had an episode of vertigo. Patient reports that now he is at baseline therefore he will be discharged home with follow-up with PCP. Addendum: As the patient was discharged the patient was not happy being discharged, and he reported to the nurse that I will kill myself if I am discharged home. Apparently, the patient got up from the bed and he started walking towards the nurses station, and he fell, hitting his head in the forehead and sustaining a laceration of approximately 4 cm. The patient did not have loss of consciousness. The patient was brought back into the bed and I assessed the patient. In the physical exam: HEAD AND FACE: patient has a laceration in the right side of the forehead approximate 4 cm. EYES: PERRLA, EOMI x 2, No injected conjunctiva, no nystagmus. EARS: Hearing grossly intact. Ear canals and tympanic membranes are within normal limits. No Hemotympanum. MOUTH: Oropharynx within normal limits. NECK: Supple, trachea is midline, no adenopathy, no JVD, no carotid bruit, no c- spine tenderness, neck with full ROM. CHEST: Symmetric, no tenderness at palpation. LUNGS: Clear to auscultation bilaterally. No wheezing or crackles. CVS: Regular rate and rhythm, S1 and S2 present, no murmurs or gallops appreciated. ABDOMEN: Soft, non-tender. No signs of distention. No rebound no guarding, and no masses palpated. Bowel sounds are normal. EXTREMITIES: FROM in all major joints, no edema, no cyanosis or clubbing. NEURO: Alert and oriented x 3. He is at his baseline. SKIN: Dry and warm. At this time I ordered another head, and a facial CT. Patient reports that he is unable to care for himself at home, he lives with a demented is unable to care for him therefore he wants to be placed in a [facility]. I discussed case with the social professionals Zoila and she agrees for the patient to be admitted and possibly placed in the [facility] for rehabilitation. Therefore I discussed the case with Dr. Eaton from the hospitalist services. The patient for admission. Laceration was repaired and he was given Boostrix. - Diagnoses Provider Diagnoses: Vertigo, Head contusion, Laceration, Unsteady gait - Provider Notifications Discussed Care Of Patient With: Margie Eaton - hospitalist Time Discussed With Above Provider: 18:25 Instructed by Provider To: Other - I discussed the patient's case with the hospitalist; she accepts the patient for admission at this time. At 18:00, I also spoke with Ml from social services counselor, who thinks that admission for the patient is best at this time. Discharge - Sign-Out/Discharge Documenting (check all that apply): Patient Departure - [place] [facility] [place] Patient Received Moderate/Deep Sedation with Procedure: No - Discharge Plan Condition: Stable Disposition: ADMITTED TO [facility] - Billing Disposition and Condition Condition: STABLE Disposition: Admitted to [facility] - Attestation Statements Document Initiated by Isa: Yes Documenting Scribe: Allyson Pulliam Provider For Whom Isa is Documenting (Include Credential): Dr. Tony Cheng MD Scribe Attestation: Allyson Stack scribed for Dr. Tony Cheng MD on 03/30/19 at 2129. Scribe Documentation Reviewed: Yes Provider Attestation: The documentation as recorded by the Allyson cid accurately reflects the service I personally performed and the decisions made by me, Dr. Tony Cheng MD Status of Scralexandra Document: Viewed
[2019-03-29 14:43] LABS: ABS Eosinophils 0.1 10^3/ul (0-0.6); ABS Lymphocytes 1.4 10^3/ul (1.0-4.8); ABS Monocytes 0.4 10^3/ul (0-0.8); ABS Neutrophils 3.8 10^3/ul (1.5-7.7); Eosinophil % 2.5 %; Hematocrit 46 % (42-52); Hemoglobin 15.6 g/dL (14.0-18.0); Lymphocyte % 24.5 %; Mean Corpuscular HGB Conc 34 g/dL (31-36); Mean Corpuscular Hemoglobin 30 pg (27-31); Mean Corpuscular Volume 89 fL (80-94); Mean Platelet Volume 7.4 fL (7.4-10.4); Nucleated Red Blood Cells % 0.2; Platelet Count 161 10^3/uL (150-450); Red Blood Count 5.13 10^6 /uL (4.18-5.48); Red Cell Distribution Width 14 % (10.5-15); White Blood Count 5.9 10^3/uL (3.5-10.8)
[2019-03-29 15:06] LABS: Troponin I 0.01 ng/mL (<0.04)
[2019-03-29 15:07] LABS: CKMB ng/mL 1.3 ng/mL (0.6-6.3)
[2019-03-29 15:10] LABS: ALT 15 U/L (7-52); AST 17 U/L (13-39); Albumin 4.2 g/dL (3.2-5.2); Albumin/Globulin Ratio 1.6 (1-3); Alkaline Phosphatase 67 U/L (34-104); Anion Gap 6 mmol/L (2-11); BUN/Creatinine Ratio 13.6 (8-20); Blood Urea Nitrogen 12 mg/dL (6-24); CO2 Carbon Dioxide 27 mmol/L (22-32); Calcium 9.6 mg/dL (8.6-10.3); Chloride 106 mmol/L (101-111); Creatine Kinase 60 U/L (10-223); EGFR African American 101.6 (>60); Globulin 2.7 g/dL (2-4); Glucose 107 mg/dL (70-100); Magnesium 2.2 mg/dL (1.9-2.7); Potassium 4.1 mmol/L (3.5-5.0); Sodium 139 mmol/L (135-145); Total Protein 6.9 g/dL (6.4-8.9)
[2019-03-29 15:32] LABS: TSH (Thyroid Stimulating Horm) 0.86 mcIU/mL (0.34-5.60)
[2019-03-29 15:55] LABS: Urine Appearance Clear; Urine Bilirubin Negative (Negative); Urine Blood Negative (Negative); Urine Color Yellow; Urine Glucose Negative (Negative); Urine Ketones Negative (Negative); Urine Nitrite Negative (Negative); Urine Protein Negative (Negative); Urine Specific Gravity 1.009 (1.010-1.030); Urine Urobilinogen Negative (Negative)
[2019-03-29] MEDS ORDERED: Meclizine TAB* 12.5 MG PO ONE (16:09)
[2019-03-29 17:52] LABS: Alcohol < 10 mg/dL (<10)
[2019-03-29] MEDS ORDERED: Tetan/Diph/Pertus SYR(Tdap)* 0.5 ML SYR(BOOSTRIX) use SYR IM ONE (18:26)
[2019-03-29] MEDS ORDERED: Acetaminophen TAB* 325 MG PO PRN (18:59)
[2019-03-29] MEDS ORDERED: Magnesium Hydroxide LIQ* 30 ML UDC PO PRN (18:59)
[2019-03-29] MEDS ORDERED: Lidocaine 1% INJ* 10 MG/ML 30 ML SDV ONE (19:06)
--- NOTE | 2019-03-29 21:42 | HP ---
CC: Dr. Giovanni Brown; Dr. Cartwright* HISTORY AND PHYSICAL: DATE OF ADMISSION: 03/29/19 PRIMARY CARE PROVIDER: Dr. Giovanni Brown. NEUROLOGIST: Dr. Cartwright. ATTENDING PHYSICIAN: Dr. Margie Eaton* (dictated by Mariam Novoa, WILMA). CHIEF COMPLAINT: Inability to ambulate. HISTORY OF PRESENT ILLNESS: Mr. Soto is a 78-year-old male with past medical history of cerebellar ataxia with parkinsonian features, obstructive sleep apnea, BPH, GERD, and non-Hodgkin's lymphoma, status post radiation, who presents to the emergency room today reporting that he cannot care for himself at home any longer. The patient is noted to have a long history of cerebellar ataxia and follows with Dr. Cartwright. The patient's symptoms have gotten progressively worse and at this point he is only able to transfer himself in and out of his wheelchair. He reports that he fell this morning at home, but did not sustain any injuries. He does live at home with his , who has dementia and his son, though he reports that he does not receive any care from his son and therefore is essentially left to fend for himself. He was feeling dizzy this morning, which he thinks is the cause of his fall. He additionally has some speech abnormalities secondary to these parkinsonian symptoms. He came to the emergency room today, requesting long-term placement, as he is no longer able to care for himself at home. While in the emergency room, the patient was noted to be slightly tachycardic, though this was consistent with his baseline, as he was recently started on medication by his primary care provider for tachycardia. He has lab work, which was unremarkable. There was an attempt to do orthostatic vital signs though the patient reports he was unable to stand and therefore orthostatic vitals could not be done. While in the emergency room, the patient did attempt to sit on the edge of the bed and use the urinal and did sustain a fall. He suffered a laceration to his right forehead above his eyebrow and this required suturing by the ED physician. The Hospitalist service was asked to admit the patient for [facility] care. PAST MEDICAL HISTORY: 1. Cerebellar ataxia with parkinsonian features. 2. Obstructive sleep apnea, not on CPAP. 3. GERD. 4. Non-Hodgkin's lymphoma, status post radiation. 5. BPH. PAST SURGICAL HISTORY: 1. Left knee. 2. Left wrist. 3. TURP. HOME MEDICATIONS: 1. Diltiazem 120 mg p.o. daily. ALLERGIES: OXYCODONE and CELEBREX. FAMILY HISTORY: The patient denies any family history of heart disease, diabetes or cancer. SOCIAL HISTORY: The patient reports a 30-year cigar smoking history, though no longer smokes. He denies any alcohol or recreational drug use. He is retired and lives at home with his and son. The patient's children Bert, Blu, and Mecca will be his surrogate decision makers in the event he is unable to make his own decision. REVIEW OF SYSTEMS: An 11-point review of systems was performed and all the pertinent positive and negative findings are in the HPI, all other other systems were negative. PHYSICAL EXAMINATION GENERAL: Mr. Soto is a well-developed, well-nourished, elderly white male , lying in bed, in no acute distress. He appears his stated age. VITAL SIGNS: Temp 97.6, heart rate 100, respiratory rate 26, oxygen saturation 95% on room air, blood pressure 79/105. HEENT: Head is atraumatic, normocephalic. Visual saini are grossly intact. Pupils equal, round, and reactive to light and accommodation. Extraocular movements intact. Hearing is grossly intact. Oral mucous membranes are moist and without lesions. NECK: Full range of motion. Trachea midline. RESPIRATORY: Symmetrical chest expansion. No chest wall deformities. Lungs are clear to auscultation throughout. No rhonchi, wheezes or rubs. CARDIOVASCULAR: Regular rhythm, tachycardic. S1, S2 present. No murmurs, rubs or gallops. No JVD. ABDOMEN: Soft, nontender to palpation. Bowel sounds are normoactive throughout. EXTREMITIES: Skin warm and smooth bilaterally. No edema. No clubbing or cyanosis. Pedal pulses are 2+ bilaterally. MUSCULOSKELETAL: No pain or deformities. NEUROLOGIC: Awake, alert, and oriented x4. Moderate dysarthria. Cranial nerves II through XII are grossly intact. Moves all extremities. SKIN: There is a laceration to the right forehead, approximately 4 cm long with sutures in place. DIAGNOSTIC STUDIES/LAB DATA: WBC 5.9, RBC 5.13, hemoglobin 13.6, hematocrit 46 , platelets 151. Sodium 139, potassium 4.1, chloride 106, carbon dioxide 27, BUN 12, creatinine 0.88, glucose 107, lactic acid 0.8. Urinalysis unremarkable. Serum alcohol negative. EKG shows normal sinus rhythm with a rate of 93, QTc 420, peaked T waves, no ischemic changes. This EKG is consistent with previous EKG on file. Chest x-ray reads as no active cardiopulmonary disease. Brain CT reads as no acute intracranial findings. Age-related atrophy and chronic white matter ischemic change. Small right frontal subcutaneous hematoma. Maxillofacial CT reads as possible acute right nasal bone fracture correlate with clinical exam. No other evidence of facial fracture. Small right frontal subcutaneous hematoma and laceration. Possible acute fracture of right nasal bone. ASSESSMENT AND PLAN: Mr. Soto is a 78-year-old male with past medical history of cerebellar ataxia with parkinsonian symptom, gastroesophageal reflux disease, benign prostatic hypertrophy, obstructive sleep apnea, non-Hodgkin's lymphoma, status post radiation, who presents to the emergency room today with complaints of inability to ambulate and care for himself at home and will be admitted inpatient for: 1. Residential care. The patient's symptoms are all secondary to his cerebellar ataxia and parkinsonian features. He reports that these symptoms have been gradually worsening, which he reports his neurologist told him to expect. He does have some dysarthria at baseline, which he notes is worse in the evening. He denies any trouble swallowing and there is no evidence of aspiration. The patient can transfer himself in and out of his wheelchair, although generally cannot care for himself and therefore will need long-term placement. 2. Sinus tachycardia. The etiology of his tachycardia is unclear, though it obviously has been going on for some time, as the patient reports that approximately 1 month ago, his primary care physician placed him on diltiazem. I will continue the diltiazem for now. I do not necessarily think that the tachycardia needs any further workup at this point. 3. Code status. The patient will be a DNR. He reports he has a MOLST on file with his PCP and we should try to obtain a copy of that MOLST tomorrow. 4. DVT prophylaxis. According to the DVT Risk Assessment, the patient scores a 3, putting him at high risk. I have ordered Lovenox. TIME SPENT: Approximately 45 minutes was spent on this admission, greater than half of that time spent [id number] with the patient obtaining my history, performing my physical exam, and reviewing my plan of care. The case has been reviewed with my attending, Dr. Eaton, who is in agreement with the plan of care. MARIAM NOVOA, BILINGUAL MANAGER [id number]/CPS #: [id number] SUSANA
[2019-03-29] MEDS: Docusate CAP* 100 MG PO SCH (22:38)
[2019-03-29] MEDS: Senna TAB PO SCH (22:38)
[2019-03-29] MEDS: Enoxaparin(*) 40 MG/0.4 ML SYR SUBCUT SCH (22:38)
[2019-03-30] MEDS: Docusate CAP* 100 MG PO SCH ×3 (10:47→20:52)
[2019-03-30] MEDS: Diltiazem TAB* 60 MG PO SCH (10:47)
[2019-03-30] MEDS: Senna TAB PO SCH ×3 (10:48→20:53)
[2019-03-30] MEDS: Enoxaparin(*) 40 MG/0.4 ML SYR SUBCUT SCH (20:51)
[2019-03-31] MEDS: Diltiazem TAB* 60 MG PO SCH (10:44)
[2019-03-31] MEDS: Senna TAB PO SCH ×2 (10:44→21:25)
[2019-03-31] MEDS: Docusate CAP* 100 MG PO SCH ×2 (10:44→21:24)
[2019-03-31] MEDS: Polyethylene Glycol 3350* 17 GM PACKET PO SCH (11:02)
[2019-03-31] MEDS: Enoxaparin(*) 40 MG/0.4 ML SYR SUBCUT SCH (21:24)
[2019-04-01] MEDS: Diltiazem TAB* 60 MG PO SCH (10:00)
[2019-04-01] MEDS: Polyethylene Glycol 3350* 17 GM PACKET PO SCH (10:00)
[2019-04-01] MEDS: Senna TAB PO SCH ×2 (10:12→21:12)
[2019-04-01] MEDS: Docusate CAP* 100 MG PO SCH ×2 (10:12→21:12)
[2019-04-01] MEDS: Enoxaparin(*) 40 MG/0.4 ML SYR SUBCUT SCH (21:11)
[2019-04-01] MEDS: Carbamide Peroxide 6.5% OTIC* 15 ML BTL BOTH EARS SCH (21:12)
[2019-04-02] MEDS: Polyethylene Glycol 3350* 17 GM PACKET PO SCH (07:40)
[2019-04-02] MEDS: Diltiazem TAB* 60 MG PO SCH (07:41)
[2019-04-02] MEDS: Carbamide Peroxide 6.5% OTIC* 15 ML BTL BOTH EARS SCH ×2 (07:41→20:41)
[2019-04-02] MEDS: Docusate CAP* 100 MG PO SCH ×2 (07:43→20:32)
[2019-04-02] MEDS: Senna TAB PO SCH ×2 (07:44→20:32)
[2019-04-02] MEDS: Enoxaparin(*) 40 MG/0.4 ML SYR SUBCUT SCH (20:32)
[2019-04-03] MEDS: Polyethylene Glycol 3350* 17 GM PACKET PO SCH (08:38)
[2019-04-03] MEDS: Docusate CAP* 100 MG PO SCH ×2 (08:38→20:15)
[2019-04-03] MEDS: Diltiazem TAB* 60 MG PO SCH (08:38)
[2019-04-03] MEDS: Senna TAB PO SCH ×2 (08:38→20:15)
[2019-04-03] MEDS: Carbamide Peroxide 6.5% OTIC* 15 ML BTL BOTH EARS SCH ×2 (08:41→20:15)
[2019-04-03] MEDS: Enoxaparin(*) 40 MG/0.4 ML SYR SUBCUT SCH (20:15)
[2019-04-04] MEDS: Senna TAB PO SCH ×2 (10:55→21:41)
[2019-04-04] MEDS: Polyethylene Glycol 3350* 17 GM PACKET PO SCH (10:55)
[2019-04-04] MEDS: Diltiazem TAB* 60 MG PO SCH (10:55)
[2019-04-04] MEDS: Docusate CAP* 100 MG PO SCH ×2 (10:55→21:41)
[2019-04-04] MEDS: Carbamide Peroxide 6.5% OTIC* 15 ML BTL BOTH EARS SCH ×2 (11:25→21:40)
[2019-04-04] MEDS: Enoxaparin(*) 40 MG/0.4 ML SYR SUBCUT SCH (21:41)
[2019-04-05] MEDS: Docusate CAP* 100 MG PO SCH ×2 (09:19→22:11)
[2019-04-05] MEDS: Senna TAB PO SCH ×2 (09:19→22:11)
[2019-04-05] MEDS: Polyethylene Glycol 3350* 17 GM PACKET PO SCH (09:19)
[2019-04-05] MEDS: Diltiazem TAB* 60 MG PO SCH (09:19)
[2019-04-05] MEDS: Carbamide Peroxide 6.5% OTIC* 15 ML BTL BOTH EARS SCH ×2 (09:21→22:11)
[2019-04-05] MEDS ORDERED: Simethicone TAB* 80 MG TAB.CHEW PO PRN (13:20)
--- NOTE | 2019-04-05 13:41 | PN ---
Subjective Date of Service: 04/05/19 Interval History: Pt is not sure why he is here. He seems not to remember that he was saying that he will kill himself if he goes home when he was in ED Stated that he is mostly wheelchair bound when at home Objective Active Medications: Acetaminophen (Tylenol Tab*) 650 mg PO Q4H PRN PRN Reason: FEVER/PAIN Carbamide Peroxide (Debrox 6.5% Otic*) 2 drop BOTH EARS BID [facility] Last Admin: 04/05/19 09:21 Dose: 2 drp Diltiazem HCl (Cardizem Tab*) 120 mg PO DAILY [facility] Last Admin: 04/05/19 09:19 Dose: 120 mg Docusate Sodium (Colace Cap*) 100 mg PO BID [facility] Last Admin: 04/05/19 09:19 Dose: 100 mg Enoxaparin Sodium (Lovenox(*)) 40 mg SUBCUT Q24H [facility] Last Admin: 04/04/19 21:41 Dose: 40 mg Magnesium Hydroxide (Milk Of Magnesia Liq*) 30 ml PO Q4H PRN PRN Reason: CONSTIPATION Polyethylene Glycol/Electrolytes (Miralax*) 17 gm PO DAILY [facility] Last Admin: 04/05/19 09:19 Dose: 17 gm Senna (Senokot Tab*) 1 tab PO BID [facility] Last Admin: 04/05/19 09:19 Dose: 1 tab Vital Signs - 8 hr 04/05/19 07:53 Temperature 97.8 F Pulse Rate 72 Respiratory 18 Rate Blood Pressure 121/67 (mmHg) O2 Sat by Pulse 96 Oximetry Oxygen Devices in Use Now: None Appearance: 78 yo m in nAD, AAOx2 Eyes: No Scleral Icterus, PERRLA Ears/Nose/Mouth/Throat: NL Teeth, Lips, Gums, Mucous Membranes Moist Neck: NL Appearance and Movements; NL JVP, Trachea Midline Respiratory: Symmetrical Chest Expansion and Respiratory Effort, Clear to Auscultation Cardiovascular: NL Sounds; No Murmurs; No JVD, RRR Abdominal: NL Sounds; No Tenderness; No Distention Lymphatic: No Cervical Adenopathy Extremities: No Edema, No Clubbing, Cyanosis Skin: No Rash or Ulcers, No Nodules or Sclerosis, - - laceration above R eybrow stapled 5 cm in length, no infection or dehiscence noted Neurological: NL Muscle Strength and Tone, - - coarse tremor noted in all extremities, hoarse voice - Nutrition: Malnutrition Diagnosis/Plan Malnutrition Assessment by Registered Dietitian: Malnutrition Assessment Clinical Characteristics Chronic,Moderate Malnutrition Assessment: - 14% wt loss x ~ 6 months Criteria - Mild temporal muscle wasting Malnutrition Assessment: Pt is currently eating well. Encouraged intake Interventions of protein containing foods. If intake becomes consistently < 50% of meals, will offer an oral nutritional supplement. Malnutrition Assessment: Goals 1. Adequate PO intake to maintain lean body mass and hydration w/o undesired wt loss Result Diagrams: 03/29/19 14:36 03/29/19 14:36 Assess/Plan/Problems-Billing Assessment: 78 yo M with cerebellar ataxia presented c/o inability to function at home , threatening to kill himself if he goes home. Fell in ED and had left forehead laceration , admitted for skilled nursing care - Patient Problems (1) Cerebellar ataxia Comment: as per Dr. Cartwright's notes from 2018, progressive disease Apparently pt's family was trying to find NH back in 2018 already cont PT, CM to address placement (2) DVT prophylaxis Comment: lovenox Status and Disposition: skilled nursing
[2019-04-05] MEDS: Enoxaparin(*) 40 MG/0.4 ML SYR SUBCUT SCH (22:11)
[2019-04-05] MEDS: Calcium Carbonate CHEW TAB* 500 MG (TUMS) PO PRN (23:35)
[2019-04-06] MEDS: Senna TAB PO SCH ×3 (07:53→23:26)
[2019-04-06] MEDS: Diltiazem TAB* 60 MG PO SCH (07:53)
[2019-04-06] MEDS: Docusate CAP* 100 MG PO SCH ×2 (07:53→23:24)
[2019-04-06] MEDS: Carbamide Peroxide 6.5% OTIC* 15 ML BTL BOTH EARS SCH ×2 (07:54→23:21)
[2019-04-06] MEDS: Polyethylene Glycol 3350* 17 GM PACKET PO SCH (07:54)
[2019-04-06] MEDS: Enoxaparin(*) 40 MG/0.4 ML SYR SUBCUT SCH (23:22)
[2019-04-07 07:04] LABS: Hematocrit 43 % (42-52); Hemoglobin 14.6 g/dL (14.0-18.0); Mean Platelet Volume 7.4 fL (7.4-10.4); Platelet Count 158 10^3/uL (150-450)
[2019-04-07 07:15] LABS: EGFR African American 104.3 (>60); EGFR Non-African American 86.2 (>60)
[2019-04-07] MEDS: Senna TAB PO SCH ×2 (09:11→21:16)
[2019-04-07] MEDS: Docusate CAP* 100 MG PO SCH ×2 (09:11→21:07)
[2019-04-07] MEDS: Polyethylene Glycol 3350* 17 GM PACKET PO SCH (09:11)
[2019-04-07] MEDS: Diltiazem TAB* 60 MG PO SCH (09:11)
[2019-04-07] MEDS: Carbamide Peroxide 6.5% OTIC* 15 ML BTL BOTH EARS SCH ×2 (09:11→21:12)
[2019-04-07] MEDS: Enoxaparin(*) 40 MG/0.4 ML SYR SUBCUT SCH (21:07)
[2019-04-08] MEDS: Docusate CAP* 100 MG PO SCH ×2 (09:11→20:48)
[2019-04-08] MEDS: Diltiazem TAB* 60 MG PO SCH (09:11)
[2019-04-08] MEDS: Carbamide Peroxide 6.5% OTIC* 15 ML BTL BOTH EARS SCH ×2 (09:11→20:47)
[2019-04-08] MEDS: Polyethylene Glycol 3350* 17 GM PACKET PO SCH (09:12)
[2019-04-08] MEDS: Senna TAB PO SCH ×2 (09:12→20:47)
[2019-04-08] MEDS: Enoxaparin(*) 40 MG/0.4 ML SYR SUBCUT SCH (20:47)
[2019-04-09] MEDS: Polyethylene Glycol 3350* 17 GM PACKET PO SCH (09:45)
[2019-04-09] MEDS: Docusate CAP* 100 MG PO SCH ×2 (09:46→21:13)
[2019-04-09] MEDS: Carbamide Peroxide 6.5% OTIC* 15 ML BTL BOTH EARS SCH ×2 (09:46→21:13)
[2019-04-09] MEDS: Senna TAB PO SCH ×2 (09:46→21:40)
[2019-04-09] MEDS: Diltiazem TAB* 60 MG PO SCH (09:46)
[2019-04-09] MEDS: Enoxaparin(*) 40 MG/0.4 ML SYR SUBCUT SCH (21:13)
[2019-04-10] MEDS: Diltiazem TAB* 60 MG PO SCH (09:58)
[2019-04-10] MEDS: Carbamide Peroxide 6.5% OTIC* 15 ML BTL BOTH EARS SCH ×2 (11:10→20:51)
[2019-04-10] MEDS: Polyethylene Glycol 3350* 17 GM PACKET PO SCH (11:10)
[2019-04-10] MEDS: Docusate CAP* 100 MG PO SCH ×2 (11:10→20:51)
[2019-04-10] MEDS: Senna TAB PO SCH ×2 (11:10→20:51)
[2019-04-10] MEDS: Enoxaparin(*) 40 MG/0.4 ML SYR SUBCUT SCH (20:51)
[2019-04-11] MEDS: Carbamide Peroxide 6.5% OTIC* 15 ML BTL BOTH EARS SCH ×2 (07:42→21:40)
[2019-04-11] MEDS: Senna TAB PO SCH ×2 (07:42→21:40)
[2019-04-11] MEDS: Diltiazem TAB* 60 MG PO SCH (08:50)
[2019-04-11] MEDS: Docusate CAP* 100 MG PO SCH ×2 (08:50→21:40)
[2019-04-11] MEDS: Polyethylene Glycol 3350* 17 GM PACKET PO SCH (08:51)
--- NOTE | 2019-04-11 18:19 | PN ---
Subjective Date of Service: 04/11/19 Interval History: Earlier in AM was more confused but better when seen by this author Objective Active Medications: Acetaminophen (Tylenol Tab*) 650 mg PO Q4H PRN PRN Reason: FEVER/PAIN Calcium Carbonate (Tums*) 500 mg PO Q4H PRN PRN Reason: HEARTBURN Last Admin: 04/05/19 23:35 Dose: 500 mg Carbamide Peroxide (Debrox 6.5% Otic*) 2 drop BOTH EARS BID [facility] Last Admin: 04/11/19 07:42 Dose: Not Given Diltiazem HCl (Cardizem Tab*) 120 mg PO DAILY [facility] Last Admin: 04/11/19 08:50 Dose: 120 mg Docusate Sodium (Colace Cap*) 100 mg PO BID [facility] Last Admin: 04/11/19 08:50 Dose: 100 mg Enoxaparin Sodium (Lovenox(*)) 40 mg SUBCUT Q24H [facility] Last Admin: 04/10/19 20:51 Dose: 40 mg Magnesium Hydroxide (Milk Of Magnesia Liq*) 30 ml PO Q4H PRN PRN Reason: CONSTIPATION Polyethylene Glycol/Electrolytes (Miralax*) 17 gm PO DAILY [facility] Last Admin: 04/11/19 08:51 Dose: 17 gm Senna (Senokot Tab*) 1 tab PO BID [facility] Last Admin: 04/11/19 07:42 Dose: Not Given Simethicone (Mylicon Tab*) 80 mg PO Q6H PRN PRN Reason: abd discomfort Oxygen Devices in Use Now: None Appearance: older than stated age, NAD Eyes: No Scleral Icterus, PERRLA Ears/Nose/Mouth/Throat: NL Teeth, Lips, Gums, Clear Oropharnyx Neck: NL Appearance and Movements; NL JVP Respiratory: Symmetrical Chest Expansion and Respiratory Effort, Clear to Auscultation Cardiovascular: RRR Neurological: Alert and Oriented x 3 - Nutrition: Malnutrition Diagnosis/Plan Malnutrition Assessment by Registered Dietitian: Malnutrition Assessment Clinical Characteristics Chronic,Moderate Malnutrition Assessment: - 14% wt loss x ~ 6 months Criteria - Mild temporal muscle wasting Malnutrition Assessment: Pt is currently eating well. Encouraged intake Interventions of protein containing foods. If intake becomes consistently < 50% of meals, will offer an oral nutritional supplement. Malnutrition Assessment: Goals 1. Adequate PO intake to maintain lean body mass and hydration w/o undesired wt loss Result Diagrams: 04/07/19 06:44 04/07/19 06:44 Assess/Plan/Problems-Billing Assessment: 78 yo M with cerebellar ataxia presented c/o inability to function at home , threatening to kill himself if he goes home. Fell in ED and had left forehead laceration , admitted for group home care - Patient Problems (1) Cerebellar ataxia Comment: as per Dr. Cartwright's notes from 2018, progressive disease Apparently pt's family was trying to find NH back in 2018 already cont PT, CM to address placement (2) DVT prophylaxis Comment: lovenox Status and Disposition: group home
[2019-04-11] MEDS: Enoxaparin(*) 40 MG/0.4 ML SYR SUBCUT SCH (21:38)
[2019-04-12] MEDS: Diltiazem TAB* 60 MG PO SCH (10:36)
[2019-04-12] MEDS: Polyethylene Glycol 3350* 17 GM PACKET PO SCH (10:36)
[2019-04-12] MEDS: Docusate CAP* 100 MG PO SCH ×2 (10:48→19:47)
[2019-04-12] MEDS: Carbamide Peroxide 6.5% OTIC* 15 ML BTL BOTH EARS SCH ×2 (10:48→21:02)
[2019-04-12] MEDS: Senna TAB PO SCH ×2 (10:48→19:47)
[2019-04-12] MEDS: Enoxaparin(*) 40 MG/0.4 ML SYR SUBCUT SCH (21:03)
[2019-04-13] MEDS: Diltiazem TAB* 60 MG PO SCH (09:09)
[2019-04-13] MEDS: Carbamide Peroxide 6.5% OTIC* 15 ML BTL BOTH EARS SCH ×2 (09:09→20:00)
[2019-04-13] MEDS: Polyethylene Glycol 3350* 17 GM PACKET PO SCH (09:09)
[2019-04-13] MEDS: Docusate CAP* 100 MG PO SCH ×2 (09:09→20:00)
[2019-04-13] MEDS: Senna TAB PO SCH (09:15)
[2019-04-13] MEDS ORDERED: Senna TAB PO PRN (10:06)
--- NOTE | 2019-04-13 12:01 | CONSULT ---
Identification - Patient Identification Reason for Psychiatric Consultation: Suicidal Ideation -: Patient is a 78 year old, M admitted on 03/29/19. - MHU Identification Employment Status: Disabled Hx Psychiatric Hospitalization: No History - Objective HPI: Psychiatry was asked by the service to see Mr. Soto to rule out any risk for self harm to the patient, who is pending placement in an SNF due to advancing Parkinson's Disease. Apparently, on the day of admission to the [facility] service, which was March 29, Mr. Soto made a statement to the effect that he would shoot himself with a gun if discharged home. This was after he had been notified by the ED service that his complaints of dizziness and ambulatory problems were not enough to warrant admission. He was initially placed on 1:1 observations but this was discontinued after 2 days as his SI had resolved with admission to the hospital. At this time, the patient denies ever having made the suicidal statement to begin with. "No, I told them that I would fall if I left, and I did fall, right there in the Emergency Room. They had to give me 17 stitches." He denies any thoughts of ending his life or harming himself. He is agreeable with SNF placement and recognizes that he needs assistance with ADLs. He denies depression, psychotic experiences or any history of hurting himself in the past. For collateral information I spoke with Viktor's son, and HCP, Bert Soto ([phone]), who was apparently present in the ED when the alleged suicidal statement was made. "I think they blew it out of proportion. He didn't say anything about a gun. What he said was if they made him go home he would end up hurting himself. He meant that he would fall or something like that." The son denies that the patient has access to firearms or that he has ever made suicidal statements or tried to harm himself in the past. Exam Appearance: Well Developed/Nourished Hygiene: Normal Grooming: Fairly Well Kept Psychomotor Activities: Normal Exhibits Abnormal Movement: Yes Attitude and Relatedness: Cooperative Eye Contact: Good - Speech Quality: Unpressured Latencies: Normal Quantity: Appropriate Patient's Decription of Mood: "Fine" Observed Affect: Fair Affect Consistent with: Euthymia Patient's Thought Process: Coherent Thought Content: No Passive Wish, No Suicidal Planning, No Homicidal Ideation, No Paranoid Ideation Experiencing Hallucinations: No, Sensorium is Clear Type of Hallucinations: Visual: No, Auditory: No, Command: No Level of Consciousness: Alert Orientation: Yes Intact, Yes Orientated to Time, Yes Orientated to Place, Yes Orientated to Person Impulse Control: Tenuous Insight and Judgement: Fair Impression - Impression Clinical Impression: 78 y.o. , white male with a history of Parkinson's Disease and no formal mental health history, currently admitted custodially to the 4th floor where he is awaiting SNF placement, who made an alleged suicidal statement in the ED on the day of admission, which was March 29. Inpatient DSM-V Dx: G11.9 Merits Inpatient Hospitalization: No BSU: Problem List - Patient Problems (1) Cerebellar ataxia Current Visit: Yes Status: Acute Code(s): G11.9 - HEREDITARY ATAXIA, UNSPECIFIED SNOMED Code(s): 08129339 Comment: as per Dr. Cartwright's notes from 2018, progressive disease Apparently pt's family was trying to find NH back in 2018 already cont PT, CM to address placement Plan - Treatment Plan Treatment Plan: The patient is denying SI and has done so throughout hospitalization. He feels safe for transfer to the SNF setting and family is agreeable with this. No further psychiatric intervention is warranted at this time and psychiatry is signing off. Thank you for the consult. Medications: Current Medications Acetaminophen (Tylenol Tab*) 650 mg PO Q4H PRN PRN Reason: FEVER/PAIN Calcium Carbonate (Tums*) 500 mg PO Q4H PRN PRN Reason: HEARTBURN Last Admin: 04/05/19 23:35 Dose: 500 mg Carbamide Peroxide (Debrox 6.5% Otic*) 2 drop BOTH EARS BID [facility] Last Admin: 04/13/19 09:09 Dose: 2 drp Cholecalciferol (Vitamin D Tab*) 2,000 units PO DAILY [facility] Diltiazem HCl (Cardizem Tab*) 120 mg PO DAILY [facility] Last Admin: 04/13/19 09:09 Dose: 120 mg Docusate Sodium (Colace Cap*) 100 mg PO BID [facility] Last Admin: 04/13/19 09:09 Dose: 100 mg Enoxaparin Sodium (Lovenox(*)) 40 mg SUBCUT Q24H [facility] Last Admin: 04/12/19 21:03 Dose: 40 mg Magnesium Hydroxide (Milk Of Magnesia Liq*) 30 ml PO Q4H PRN PRN Reason: CONSTIPATION Polyethylene Glycol/Electrolytes (Miralax*) 17 gm PO DAILY [facility] Last Admin: 04/13/19 09:09 Dose: 17 gm Senna (Senokot Tab*) 1 tab PO BID PRN PRN Reason: CONSTIPATION Simethicone (Mylicon Tab*) 80 mg PO Q6H PRN PRN Reason: abd discomfort
[2019-04-13] MEDS: Cholecalciferol TAB* 1000 UNITS PO SCH (17:40)
[2019-04-13] MEDS: Enoxaparin(*) 40 MG/0.4 ML SYR SUBCUT SCH (20:00)
[2019-04-14 07:02] LABS: Hematocrit 42 % (42-52); Hemoglobin 14.5 g/dL (14.0-18.0); Mean Platelet Volume 7.7 fL (7.4-10.4); Platelet Count 176 10^3/uL (150-450)
[2019-04-14 07:18] LABS: EGFR African American 113.4 (>60); EGFR Non-African American 93.7 (>60)
[2019-04-14] MEDS: Polyethylene Glycol 3350* 17 GM PACKET PO SCH (09:47)
[2019-04-14] MEDS: Carbamide Peroxide 6.5% OTIC* 15 ML BTL BOTH EARS SCH ×2 (09:47→19:23)
[2019-04-14] MEDS: Cholecalciferol TAB* 1000 UNITS PO SCH (09:47)
[2019-04-14] MEDS: Diltiazem TAB* 60 MG PO SCH (09:47)
[2019-04-14] MEDS: Docusate CAP* 100 MG PO SCH ×2 (09:47→19:23)
[2019-04-14] MEDS: Enoxaparin(*) 40 MG/0.4 ML SYR SUBCUT SCH (19:23)
[2019-04-14] MEDS: Calcium Carbonate CHEW TAB* 500 MG (TUMS) PO PRN (23:32)
[2019-04-15] MEDS: Polyethylene Glycol 3350* 17 GM PACKET PO SCH (09:01)
[2019-04-15] MEDS: Cholecalciferol TAB* 1000 UNITS PO SCH (09:02)
[2019-04-15] MEDS: Diltiazem TAB* 60 MG PO SCH (09:02)
[2019-04-15] MEDS: Docusate CAP* 100 MG PO SCH ×2 (09:02→20:01)
[2019-04-15] MEDS: Carbamide Peroxide 6.5% OTIC* 15 ML BTL BOTH EARS SCH ×2 (09:02→20:05)
[2019-04-15] MEDS: Calcium Carbonate CHEW TAB* 500 MG (TUMS) PO PRN (20:02)
[2019-04-15] MEDS: Enoxaparin(*) 40 MG/0.4 ML SYR SUBCUT SCH (20:03)
[2019-04-16] MEDS: Carbamide Peroxide 6.5% OTIC* 15 ML BTL BOTH EARS SCH ×2 (08:41→20:17)
[2019-04-16] MEDS: Cholecalciferol TAB* 1000 UNITS PO SCH (08:41)
[2019-04-16] MEDS: Diltiazem TAB* 60 MG PO SCH (08:41)
[2019-04-16] MEDS: Docusate CAP* 100 MG PO SCH ×2 (08:41→20:17)
[2019-04-16] MEDS: Polyethylene Glycol 3350* 17 GM PACKET PO SCH (08:41)
--- NOTE | 2019-04-16 09:18 | PN ---
Subjective Date of Service: 04/16/19 Interval History: No issues, he is concerned about his ataxia. Objective Active Medications: Acetaminophen (Tylenol Tab*) 650 mg PO Q4H PRN PRN Reason: FEVER/PAIN Calcium Carbonate (Tums*) 500 mg PO Q4H PRN PRN Reason: HEARTBURN Last Admin: 04/15/19 20:02 Dose: 500 mg Carbamide Peroxide (Debrox 6.5% Otic*) 2 drop BOTH EARS BID [facility] Last Admin: 04/16/19 08:41 Dose: 2 drp Cholecalciferol (Vitamin D Tab*) 2,000 units PO DAILY [facility] Last Admin: 04/16/19 08:41 Dose: 2,000 units Diltiazem HCl (Cardizem Tab*) 120 mg PO DAILY [facility] Last Admin: 04/16/19 08:41 Dose: 120 mg Docusate Sodium (Colace Cap*) 100 mg PO BID [facility] Last Admin: 04/16/19 08:41 Dose: 100 mg Enoxaparin Sodium (Lovenox(*)) 40 mg SUBCUT Q24H [facility] Last Admin: 04/15/19 20:03 Dose: 40 mg Magnesium Hydroxide (Milk Of Magnesia Liq*) 30 ml PO Q4H PRN PRN Reason: CONSTIPATION Polyethylene Glycol/Electrolytes (Miralax*) 17 gm PO DAILY [facility] Last Admin: 04/16/19 08:41 Dose: 17 gm Senna (Senokot Tab*) 1 tab PO BID PRN PRN Reason: CONSTIPATION Simethicone (Mylicon Tab*) 80 mg PO Q6H PRN PRN Reason: abd discomfort Last Admin: 04/15/19 20:51 Dose: 80 mg Vital Signs - 8 hr 04/16/19 04/16/19 07:24 07:40 Temperature 98.2 F Pulse Rate 74 Respiratory 16 16 Rate Blood Pressure 123/61 (mmHg) O2 Sat by Pulse 96 Oximetry Oxygen Devices in Use Now: None Appearance: elderly male lying in bed, not in distress Eyes: No Scleral Icterus Respiratory: Clear to Auscultation Cardiovascular: RRR Neurological: Alert and Oriented x 3 - Nutrition: Malnutrition Diagnosis/Plan Malnutrition Assessment by Registered Dietitian: Malnutrition Assessment Clinical Characteristics Chronic,Moderate Malnutrition Assessment: - 14% wt loss x ~ 6 months Criteria - Mild temporal muscle wasting Malnutrition Assessment: Pt is currently eating well. Encouraged intake Interventions of protein containing foods. If intake becomes consistently < 50% of meals, will offer an oral nutritional supplement. Malnutrition Assessment: Goals 1. Adequate PO intake to maintain lean body mass and hydration w/o undesired wt loss Result Diagrams: 04/14/19 06:07 04/14/19 06:07 Assess/Plan/Problems-Billing Assessment: 78 yo M with cerebellar ataxia presented c/o inability to function at home , threatening to kill himself if he goes home. Fell in ED and had left forehead laceration , admitted for detention care - Patient Problems (1) Cerebellar ataxia Current Visit: Yes Status: Acute Code(s): G11.9 - HEREDITARY ATAXIA, UNSPECIFIED SNOMED Code(s): 73245260 Comment: as per Dr. Cartwright's notes from 2018, progressive disease Apparently pt's family was trying to find NH back in 2018 already cont PT, CM to address placement (2) DVT prophylaxis Current Visit: Yes Status: Acute Code(s): Z29.9 - ENCOUNTER FOR PROPHYLACTIC MEASURES, UNSPECIFIED SNOMED Code(s): 053242946 Comment: lovenox 40mg subQ Status and Disposition: Pneding SNF placement, here for detention care
[2019-04-16] MEDS ORDERED: Meclizine TAB* 12.5 MG PO PRN (16:00)
[2019-04-16] MEDS: Enoxaparin(*) 40 MG/0.4 ML SYR SUBCUT SCH (20:17)
[2019-04-17 07:43] VITALS: BP 129/65
[2019-04-17] MEDS: Polyethylene Glycol 3350* 17 GM PACKET PO SCH (09:21)
[2019-04-17] MEDS: Docusate CAP* 100 MG PO SCH (09:22)
[2019-04-17] MEDS: Cholecalciferol TAB* 1000 UNITS PO SCH (09:22)
[2019-04-17] MEDS: Diltiazem TAB* 60 MG PO SCH (09:22)
[2019-04-17] MEDS: Carbamide Peroxide 6.5% OTIC* 15 ML BTL BOTH EARS SCH (09:22)
--- NOTE | 2019-04-17 09:54 | DS ---
CC: [facility]; Dr. Giovanni Brown; Dr. Cartwright * DISCHARGE SUMMARY: DATE OF ADMISSION: 03/29/19 DATE OF DISCHARGE: 04/17/19 PRIMARY CARE PROVIDER: Dr. Giovanni Brown. PRIMARY NEUROLOGIST: Dr. Cartwright. REASON FOR ADMISSION: Inability to ambulate. HOSPITAL COURSE: This is a 78-year-old male with a past medical history of cerebellar ataxia with Parkinson feature, obstructive sleep apnea, BPH, GERD, non- Hodgkin's lymphoma; status post radiation who had come to the emergency room because of inability to ambulate and inability to care for himself. The patient reports that his symptoms have gotten worse and he is only able to transfer himself in and out of the wheelchair. He did sustain a fall with trauma to the head. A CT scan upon admission had showed small right frontal subcutaneous hematoma and laceration. The patient was admitted to the hospital as a fci care. The patient's symptoms were attributed to cerebellar ataxia and Parkinson feature. He is having gradual worsening, which is to be expected given his condition of cerebellar ataxia. It is to be noted that the family did try to put him in a fci last year; however, were unable to get all that taken care of. At this point, the patient was admitted for fci care, case management was involved in the placement. Through the hospital course, the patient did have a referral for PMRU and the agreement was that the patient be placed in a subacute placement. The patient lives at home; however, he is unable to get help because the patient lives with his at home who has dementia. The patient was also ordered for physical therapy as well as occupational therapy. CONDITION OF PATIENT ON DISCHARGE: Fair. BP: 129/65, HR: 73, RR: 16, T: 97.5F, O2: 97% on Room Air GEN: Elderly male lying in bed, not in distress Heart: RRR, no murmurs Lungs: Clear to ausculation Abdomen: normoactive bowel sounds, soft, non-tender, non-distended Ext: no lower extremity edema, no calf tenderness. Neuro: AA/O X 3, mild dysmetria, motor 4/5. DISCHARGE PLAN: Regular diet. Activity as tolerated with physical therapy. Followup with primary care provider, Dr. Giovanni Brown, in 3 days upon discharge from the fci. DISCHARGE MEDICATIONS: Include: 1. Acetaminophen 325 mg every 6 hours as needed, 650 mg tablet every 4 hours as needed. 2. Calcium carbonate 500 mg every 4 hours. 3. Cholecalciferol 1000 units daily. 4. Diltiazem 120 mg daily. 5. Carbamide peroxide ear drops 2 drops both ears twice a day 6.5%. 6. Colace 100 mg b.i.d. 7. Magnesium hydroxide as needed 30 mg every 4 hours. 8. Meclizine 25 mg every 8 hours as needed for dizziness. 9. MiraLAX 17 g daily. 10. Senna 1 tablet b.i.d. as needed. 11. Simethicone 80 mg every 6 hours as needed. PRINCIPAL DIAGNOSIS: Cerebellar ataxia with Parkinson feature. Secondary Diagnosis: Fall, DISPOSITION: The patient is to be transferred to [facility], where the patient will benefit from nursing care as well as acute rehab. DIET: Regular diet. ACTIVITY: As tolerated. [id number]/CPS #: [id number] [facility]
== END 2019-04-17 10:50 | DRG 57 ==
LOC: ED 13:33 → MED 18:59
PROVIDERS: ADMIT Internal Medicine; ATTEND Internal Medicine
PROC: 0HQ1XZZ Repair Face Skin, External Approach (ICD-10-PCS; principal; 2019-03-29)
DX: G20 Parkinson's disease (principal); R45.851 Suicidal ideations; G32.81 Cerebellar ataxia in diseases classified elsewhere; G47.33 Obstructive sleep apnea (adult) (pediatric); N40.0 Benign prostatic hyperplasia without lower urinary tract symptoms; K21.9 Gastro-esophageal reflux disease without esophagitis; W06.XXXA Fall from bed, initial encounter; Y92.238 Other place in hospital as the place of occurrence of the external cause; S01.81XA Laceration without foreign body of other part of head, initial encounter; R47.1 Dysarthria and anarthria; R00.0 Tachycardia, unspecified; Z66 Do not resuscitate; F41.9 Anxiety disorder, unspecified; F32.9 Major depressive disorder, single episode, unspecified; H26.9 Unspecified cataract; R40.2362 Coma scale, best motor response, obeys commands, at arrival to emergency department; R40.2142 Coma scale, eyes open, spontaneous, at arrival to emergency department; R40.2252 Coma scale, best verbal response, oriented, at arrival to emergency department; Z92.3 Personal history of irradiation; Z88.5 Allergy status to narcotic agent; Z88.6 Allergy status to analgesic agent; Z87.891 Personal history of nicotine dependence; Z85.028 Personal history of other malignant neoplasm of stomach; Z85.72 Personal history of non-Hodgkin lymphomas
CPT/HCPCS: 36415; 70450; 70486; 71045; 80053; 80320; 81003; 82550; 82553; 82565; 83605; 83735; 83880; 84443; 84484; 84520; 85014; 85018; 85025; 85049; 93005; 99284; A9270-GY; G0480; G8978-GP-CM; G8979-GP-CJ; G8987-GO-CK; J1650